=== PATIENT | male | born 1955 | race African-American/Black ===

== ENCOUNTER 2017-05-29 09:52 | Emergency (ER) | payer MEDICAID ==
[~2017-05-29] VITALS: Ht 182.9 cm; Wt 100.0 kg
[2017-05-29] MEDS ORDERED: KETOROLAC 60MG/2ML VIAL IM ONE (13:00)
[2017-05-29 13:55] VITALS: BP 146/98
== END 2017-05-29 14:08 | disposition home or self-care (01) ==
LOC: ER 09:52
DX: M25.572 Pain in left ankle and joints of left foot (principal); F17.200 Nicotine dependence, unspecified, uncomplicated
CPT/HCPCS: 73600; 96372; 99284; J1885

== ENCOUNTER 2018-09-28 11:20 | Emergency (ER) | payer MEDICAID ==
[~2018-09-28] VITALS: Ht 188 cm; Wt 100.0 kg
[2018-09-28] MEDS ORDERED: HYDROCODONE/ACETAMINOPHEN 5/325MG TABLET PO ONE (15:00)
[2018-09-28 18:33] VITALS: BP 170/85
== END 2018-09-28 18:34 | disposition home or self-care (01) ==
LOC: ER 11:33
DX: S82.831A Other fracture of upper and lower end of right fibula, initial encounter for closed fracture (principal); W18.39XA Other fall on same level, initial encounter; Y93.01 Activity, walking, marching and hiking; Y92.89 Other specified places as the place of occurrence of the external cause; Y99.8 Other external cause status
CPT/HCPCS: 29505; 73502; 73590; 73610; 73630; 93971; 99284; Z7610